=== PATIENT | female | born 1960 | race Caucasian/White ===

== ENCOUNTER 2019-03-16 15:31 | Outpatient (REF) | payer MEDICAID, SELFPAY | END 2019-03-16 15:51 | LOC: LBN 15:31 | PROVIDERS: PCP Family Medicine; Visit Provider Family Medicine | DX: R30.0 Dysuria (principal) | CPT/HCPCS: 87077; 87086; 87186 ==

== ENCOUNTER 2020-05-05 02:10 | Outpatient (CLI) | payer MEDICAID, SELFPAY ==
[2020-05-06 15:33] LABS: COVID-19 RT-PCR UVMMC Result Negative (Negative)
== END 2020-05-05 02:30 ==
PROVIDERS: PCP Family Medicine; Visit Provider Surgery
DX: Z11.52 Encounter for screening for COVID-19 (principal); Z01.818 Encounter for other preprocedural examination
CPT/HCPCS: U0003

== ENCOUNTER 2020-05-10 07:19 | Day surgery (SDC) | payer MEDICAID, SELFPAY ==
--- NOTE | 2020-05-10 07:00 | COLE_ITS ---
Date of service: 05/10/20 Time of Service: 08:19 Colonoscopy Report Date of procedure: 05/10/20 Pre-op diagnosis general: Colon Cancer Screening Post-op diagnosis procedure note: other (sigmoid polyp) Procedure: Colonoscopy with polypectomy Surgeon: Kathrin Moore Anesthesia proc note operative: other (General/ASA 2/Jacky Mcfadden CRNA) Estimated blood loss (mL): 3 Pathology: other (Sigmoid polyp) Complications: None Disposition: same day Indications: Mrs. Baez is a pleasant 59-year-old female who is here in the office today to discuss another colonoscopy. Her last colonoscopy was in 2009 and was normal. She has no family history of colon cancer. She denies any GI symptoms. Colonoscopy procedure was discussed in detail as well as its complications. We reviewed the prep instructions. We also discussed Covid testing and quarantine requirements per state guidelines. Risks, benefits and complications have been reviewed. Complications include but are not limited to bleeding, pain, perforation, missed small lesion/polyp, sore throat, aspiration and adverse reaction to the medications. Questions were entertained and answered to their satisfaction and they wished to proceed. No guarantees were given or implied. COVID-19 testing explained to the patient. Reason for test reviewed. Quarantine per state requirements reviewed with patient. Patient understands and agrees to testing. Prep: Miralax/Dulcolax Procedure Start Time: :19 Procedure End Time: 08:50 Retraction Time: 20 minutes Findings: One small sigmoid polyp (<10 mm) Procedure Description: After informed consent was obtained the patient was taken to the procedure room and placed in a left decubitous position. Monitors were applied and a time out was done. The patients name, date of , procedure, allergies to medications and metal in their body was reviewed. The patient was then sedated. Once sedated and comfortable a rectal exam was done. External exam was normal. Internal exam revealed a normal sphincter tone and no palpable masses. The scope was then introduced and retro-flexed. No internal hemorrhoids, polyps or masses were identified on retro-flexion. The scope was then advanced to the cecum without difficulty. The ileocecal valve and appendiceal orifice were identified. The prep was adequate. The scope was then slowly retracted over 20 minutes back into the rectum. Polyps were removed with cold forceps in the sig moid colon. There was no diverticulosis noted. The scope was removed and the patient was woken up and taken back to Same day surgery in stable condition. The patient tolerated the procedure well and there were no immediate complications. Follow up: The patient should follow up in 5 years unless they develop changes in bowel habits or other new gastrointestinal complaints.
--- NOTE | 2020-05-10 07:02 | W.PM.DSUDISC ---
Discharge Plan Disposition Patient Disposition: HOME Condition: Good Discharge Details Reason For Visit: colonoscopy Attending Provider: Kathrin Moore Primary Care Provider: Duncan Gottlieb Home Meds and New Rx's Prescriptions: Continued triamcinolone acetonide 0.1 % cream 1 applic Topical BID PRN (Reason: ear rash) Qty: 30 RF: 1 mupirocin 2 % ointment 1 applic TP BID PRN (Reason: follicular rash) Qty: 30 RF: 1 albuterol sulfate 90 mcg/actuation HFA aerosol inhaler 1 puff IH Q6H PRN (Reason: shortness of breath or wheezing) Qty: 8 RF: 1 loratadine 10 mg tablet 10 mg PO DAILY PRN (Reason: allergy symptoms) Qty: 90 RF: 3 amlodipine 5 mg tablet 5 mg PO DAILY Qty: 90 RF: 4 bupropion HCl [Wellbutrin SR] 150 mg tablet sustained-release 12 hr 150 mg PO DAILY RF: 0 omeprazole magnesium [Prilosec OTC] 20 mg tablet,delayed release (DR/EC) 20 mg PO DAILY PRN (Reason: dyspepsia) Qty: 30 RF: 5 atenolol 50 mg tablet 50 mg PO DAILY Qty: 90 RF: 4 ibuprofen 800 mg tablet 800 mg PO TID PRN (Reason: fever or pain) Qty: 90 RF: 1 fluticasone propionate [Flonase Allergy Relief] 50 mcg/actuation spray,suspension 2 spray NS DAILY PRN (Reason: allergy symptoms) Qty: 360 RF: 3 Discontinued bisacodyl [Dulcolax (bisacodyl)] 5 mg tablet,delayed release (DR/EC) 5 mg PO ONCE Qty: 4 RF: 0 polyethylene glycol 3350 17 gram powder in packet 255 g PO DAILY Qty: 15 RF: 0 Discharge Instructions Instructions: Colorectal Polyps (DC) Additional Instructions: Findings: 1 small polyp Follow up: 5 years Please call if you develop: fevers >101.5 Nausea or Vomiting Abdominal pain that is not transient DAY SURGERY UNIT POST ENDOSCOPY INSTRUCTIONS 1. Because there will be medication in your system for the next 24 hours, you may feel a little sleepy. Your coordination will be affected. Therefore: a. Do not drive or operate dangerous equipment for 24 hours. b. Do not drink alcohol beverages for 24 hours (not even beer). c. Plan to go home and rest for the day. 2. Generally there are no restrictions on your activity after a day or so has gone by, but you may feel a bit fatigued for a few days. 3 After you arrive home you may have a light meal and return to a normal diet as you can tolerate it without feeling sick to your stomach. 4. After surgery, you may feel pain or discomfort. This should be only transient, but if it persists please contact your doctor. 5. If there are any questions regarding the findings of your procedure, please feel free to contact your doctor. 6. If you are unable to contact your doctor with a problem, contact the hospital at [phone]. 7. Continue all your regular medications unless directed otherwise. I understand the above instructions and have no questions. Signature of Patient or Responsible Adult Escort Date/Time Name of Responsible Adult Escort Signature of Nurse Date/Time Activity:: Activity as Tolerated Diet:: As Tolerated Discharge Orders Discharge Orders: Discharge Order (Routine); Ordered 05/10/20 Ordered By: Kathrin Moore
[2020-05-10 07:30] VITALS: BP 116/72; PULSE 63; RESP 16; TEMP 36.4; O2SAT 94
[2020-05-10] MEDS: Lactated Ringers 1,000 ML 80 ML IV (07:47)
--- NOTE | 2020-05-10 08:21 | BOWEL_PTH ---
PATIENT: Tali Baez LOC: [facility] U#:[id number] AGE/SX: 59/F ROOM: RE05/10/[address]: Kathrin Moore MD : 1960 BED: DIS: 05/10/2020 SPEC #: [id number] RECD: 05/10/20 12:24 STATUS: ISAIAS REQ #: [id number] ELISA: 05/10/20 08:[address]: Kathrin Moore DEPT: Surgical Specimen RECD BY: Jeniffer Ascencio ENTERED: 05/10/20 12:24 SP TYPE: Bowel OTHR DR: Duncan Gottlieb MD Tissues: 1 - BIOPSY BOWEL Procedures: GROSS AND MICRO LEVEL 4 Comments: [id number]
[2020-05-10 09:20] VITALS: BP 125/78; PULSE 63; RESP 18; TEMP 36.4; O2SAT 96
== END 2020-05-10 09:55 | disposition home or self-care (01) ==
LOC: SUR 07:20
PROVIDERS: PCP Family Medicine; Visit Provider Surgery
PROC: 0DJD8ZZ Inspection of Lower Intestinal Tract, Via Natural or Artificial Opening Endoscopic (ICD-10-PCS; CPT 45378; principal; 2020-05-10 08:15)
DX: Z12.11 Encounter for screening for malignant neoplasm of colon (principal); D12.4 Benign neoplasm of descending colon
CPT/HCPCS: 45380; 88305

== ENCOUNTER 2020-12-10 17:04 | Emergency (ER) | payer MEDICAID, SELFPAY ==
[2020-12-10 17:15] VITALS: BP 143/80; PULSE 63; RESP 18; TEMP 36.9; O2SAT 94
[2020-12-10 18:25] VITALS: BP 133/76; PULSE 65; RESP 18; TEMP 36.1; O2SAT 98
--- NOTE | 2020-12-10 18:32 | ED.GENADUL_ITS ---
Discharge Plan Disposition Patient Disposition: HOME Condition: Good Discharge Details Clinical Impression: History of shingles Primary Care Provider: Duncan Gottlieb ED Provider: Jeniffer Bruno Home Meds and New Rx's Prescriptions: New valacyclovir [Valtrex] 1 gram tablet 1,000 mg PO Q8H Qty: 21 RF: 0 No Action loratadine 10 mg tablet 10 mg PO DAILY PRN (Reason: allergy symptoms) Qty: 90 RF: 3 bupropion HCl [Wellbutrin SR] 150 mg tablet sustained-release 12 hr 150 mg PO DAILY RF: 0 albuterol sulfate 90 mcg/actuation HFA aerosol inhaler 1 puff IH Q6H PRN (Reason: shortness of breath or wheezing) Qty: 8 RF: 1 mupirocin 2 % ointment 1 applic TP BID PRN (Reason: follicular rash) Qty: 30 RF: 1 triamcinolone acetonide 0.1 % cream 1 applic Topical BID PRN (Reason: ear rash) Qty: 30 RF: 1 omeprazole magnesium [Prilosec OTC] 20 mg tablet,delayed release (DR/EC) 20 mg PO DAILY PRN (Reason: dyspepsia) Qty: 30 RF: 5 atenolol 50 mg tablet 50 mg PO DAILY Qty: 90 RF: 4 fluticasone propionate [Flonase Allergy Relief] 50 mcg/actuation spray,suspension 2 spray NS DAILY PRN (Reason: allergy symptoms) Qty: 360 RF: 3 ibuprofen 800 mg tablet 800 mg PO TID PRN (Reason: fever or pain) Qty: 90 RF: 1 amlodipine 5 mg tablet 5 mg PO DAILY Qty: 90 RF: 4 Discharge Instructions Additional Instructions: Take Valtrex as prescribed Please return with worsening pain, fever, chills, headache, or should you have new or worsening complaints Stay away from immunosuppressive people, people, elderly Discharge Data Discharge Date/Time-TO BE ENTERED AT DEPARTURE: 12/10/20 18:53 Medical Decision Making Is an interesting case and patient clinically has shingles, however it does cross the midline, I will treat her empirically with Valtrex, she was given the first dose in the emergency room She is not reportedly immunosuppressed It sounds like approximately 20% of shingles cases cross midline She given a threshold to return should she have new or worsening complaints and she discharged home in stable condition with stable vital HPI General Mode of arrival: ambulatory . Date/Time Provider Initiated Documentation: 12/10/20 18:32 . Limitations to Documentation: no limitations . Information obtained by: patient . HPI Narrative: This pleasant 60-year-old female presents with a rash that started on Friday. She states the rash is exquisitely tender, burning, itching. She denies any known injuries or insect bites. She states that she had a tingling sensation before the rash started. She states she feels like she have a virus, tired and she felt achy, this is generalized. She denies any chest pain or shortness of breath. She denies any history of delusions of the past. She did have chickenpox as a child. She denies any known sick contacts. Related Data Home Medications Medication Instructions Recorded Confirmed loratadine 10 mg tablet 10 mg PO DAILY PRN #90 tab-cap 11/09/18 12/10/20 omeprazole magnesium 20 mg 20 mg PO DAILY PRN #30 tab 03/16/19 12/10/20 tablet,delayed release atenolol 50 mg tablet 50 mg PO DAILY #90 tab-cap 02/10/20 12/10/20 bupropion HCl 150 mg tablet,12 hr 150 mg PO DAILY tab-cap 04/18/20 12/10/20 sustained-release fluticasone propionate 50 2 spray NS DAILY PRN #360 spry 05/05/20 12/10/20 mcg/actuation nasal spray,suspension ibuprofen 800 mg tablet 800 mg PO TID PRN #90 tab-cap 11/08/20 12/10/20 amlodipine 5 mg tablet 5 mg PO DAILY #90 tab-cap 11/09/20 12/10/20 albuterol sulfate 90 mcg/actuation 1 puff IH Q6H PRN #8 gm 11/22/20 12/10/20 aerosol inhaler mupirocin 2 % topical ointment 1 applic TP BID PRN #30 gm 11/22/20 12/10/20 triamcinolone acetonide 0.1 % 1 applic TOPICAL BID PRN #30 gm 11/22/20 12/10/20 topical cream valacyclovir [Valtrex] 1,000 mg PO Q8H #21 tab 12/10/20 Previous Rx's Medication Instructions Recorded loratadine 10 mg tablet 10 mg PO DAILY PRN #90 tab-cap 11/09/18 omeprazole magnesium 20 mg 20 mg PO DAILY PRN #30 tab 03/16/19 tablet,delayed release atenolol 50 mg tablet 50 mg PO DAILY #90 tab-cap 02/10/20 fluticasone propionate 50 2 spray NS DAILY PRN #360 spry 05/05/20 mcg/actuation nasal spray,suspension ibuprofen 800 mg tablet 800 mg PO TID PRN #90 tab-cap 11/08/20 amlodipine 5 mg tablet 5 mg PO DAILY #90 tab-cap 11/09/20 albuterol sulfate 90 mcg/actuation 1 puff IH Q6H PRN #8 gm 11/22/20 aerosol inhaler mupirocin 2 % topical ointment 1 applic TP BID PRN #30 gm 11/22/20 triamcinolone acetonide 0.1 % 1 applic TOPICAL BID PRN #30 gm 11/22/20 topical cream valacyclovir [Valtrex] 1,000 mg PO Q8H #21 tab 12/10/20 Allergies Allergy/AdvReac Type Severity Reaction Status Date / Time azithromycin AdvReac Intermediate Verified 12/10/20 17:20 codeine AdvReac Intermediate VOMITING Verified 12/10/20 17:20 erythromycin base AdvReac Unknown GI Verified 12/10/20 17:20 INTOLERANCE meperidine AdvReac VOMITING Verified 12/10/20 17:20 General Stated Complaint: RashLesion BRYSON: 3 Review of Systems All systems reviewed & are unremarkable except as noted in HPI and below PFSH Medical History Anogenital herpesviral infection Asthma Carpal tunnel syndrome Depression HYpertension Mastitis Seasonal allergies Toxic uninodular goiter Surgical History Biopsy of breast 06/2010 bilateral excisional breast biopsies fibroadenoma and papilloma History of lumpectomy of both breasts Rhinoplasty 1988 Family History Mother , AGE 61 No problems noted. Father , AGE 84 No problems noted. Sister , AGE 29 No problems noted. Sister No problems noted. Brother No problems noted. Son , AGE 22 No problems noted. Sister No problems noted. Social History (Updated 11/24/20 @ 08:29 by Karel Hardy) Smoking/Tobacco Use Status: Never Second Hand Exposure: No Smoking risk assessment performed?: Yes Alcohol Intake: current Alcohol Intake frequency: a few times a week Alcohol type: beer and wine Drug use: Never Substance use type: does not use Caregiver/Support person: No Household members: none Housing: house Communication Needs: None Do you need help understanding health information?: Never current occupation: DISPATCHER Pets and animals: Yes Pets and animals: cat(s) Sexually active: Yes Do you think of yourself as: straight/heterosexual Current gender identity: female What is your relationship status?: How often do you talk on the phone with friends or family?: three or more times per week How often do you get together with friends or relatives?: twice per week How often do you attend gnosticist or methodist services?: decline to answer Do you belong to any clubs or organized social groups?: no Panel score (0-1 are the most socially isolated patients): 1 What type of physical activity do you participate in: walking Duration: 15-30 minutes/day Frequency: 3-4 times per week Stephani/Scientology: No preference Special stephani needs: No Seatbelt use: always Helmet use: Yes Helmet use: always Drive intox or ride w/intox motorcycle delivery driver: No Do you feel safe at home: Yes Do you feel safe in your relationship?: Yes Exam Const General: cooperative and healthy appearing HENCT Head: normal to inspection Eyes Sclera: sclerae normal Resp Effort & Inspection: normal respiratory effort Cardio Rate: regular rate Skin Other: Vesicular rash across scapular region, along bra line, exquisitely tender to light palpation, no erythema or abscess formation, of note it does cross midline, no crepitus Neuro General: patient alert and patient oriented x3 Course Vital Signs Vital signs: Vital Signs Temperature 36.9 C 12/10/20 17:15 Pulse 63 12/10/20 17:15 Respiratory Rate 18 12/10/20 17:15 Blood Pressure 143/80 H 12/10/20 17:15 Pulse Oximetry 94 12/10/20 17:15 Temperature 36.9 C 12/10/20 17:15 Temperature Source Temporal Artery Scan 12/10/20 17:15 Pulse 63 12/10/20 17:15 Respiratory Rate 18 12/10/20 17:15 Respiratory Effort Non-Labored 12/10/20 17:23 Blood Pressure 143/80 H 12/10/20 17:15 Blood Pressure Position Sitting 12/10/20 17:15 Pulse Oximetry 94 12/10/20 17:15 Oxygen Delivery Method Room Air 12/10/20 17:15 Oxygen Flow Rate 0 12/10/20 17:15 Pain Level 7 12/10/20 17:15
[2020-12-10] MEDS: valACYclovir 1,000 MG TAB 1000 MG PO (18:50)
== END 2020-12-10 18:53 | disposition home or self-care (01) ==
PROVIDERS: Emergency Provider Physician Assistant; PCP Family Medicine
DX: B02.9 Zoster without complications (principal)
CPT/HCPCS: 99283

== ENCOUNTER 2021-11-29 12:23 | Outpatient (REF) | payer MEDICAID, SELFPAY ==
--- NOTE | 2021-11-29 11:50 | PAPFT_PTH ---
PATIENT: Tali Baez LOC: [facility]#:[id number] AGE/SX: 61/F ROOM: RE11/29/[address]: Duncan Gottlieb MD : 1960 BED: DIS: 11/29/2021 SPEC #: [id number] RECD: 11/30/21 10:17 STATUS: ISAIAS REQ #: [id number] ELISA: 11/29/21 11:[address]: Duncan Gottlieb DEPT: [facility] Cytology RECD BY: hRiannon Angel Tissues: 1 - CX/ENDOCX FOR PAP SMEARS Procedures: PAP THIN PREP/UVM Screening HPV DNA PROBE Comments: [id number]
== END 2021-11-29 12:24 | disposition home or self-care (01) ==
LOC: LBN 12:23
PROVIDERS: PCP Family Medicine; Visit Provider Family Medicine
DX: Z12.4 Encounter for screening for malignant neoplasm of cervix (principal); Z11.51 Encounter for screening for human papillomavirus (HPV)
CPT/HCPCS: 88142; 87624

== ENCOUNTER → 2021-12-17 03:05 | Outpatient (CLI) | payer MEDICAID, SELFPAY ==
--- NOTE | 2021-12-17 08:00 | DI.MAMMO_ITS ---
Exam(s) MAMMO SCREENING EXAM: MAMMO SCREENING CLINICAL HISTORY: screening,z12.39 TECHNIQUE: Mammograms were interpreted according to the usual protocol including computer analysis w [employer] CAD system, tomosynthesis and C-view imaging. COMPARISON: FINDINGS: The breasts are heterogeneously dense. No dominant mass or suspicious clumped microcalcification is identified in either breast. There is a group of 4 benign-appearing microcalcifications projected in the central medial portion of the left breast. No prior films available for comparison. IMPRESSION: No specific evidence of malignancy at this time. Follow-up mammogram requested in 12 months to evalu ate probably benign group of microcalcifications of the left breast, considering the family history o f breast carcinoma. BI-RADS Category 2 - Benign Findings Breast Density - Category C - Heterogeneously dense
== END ==
PROVIDERS: PCP Family Medicine; Visit Provider Family Medicine
DX: Z12.31 Encounter for screening mammogram for malignant neoplasm of breast (principal); R92.8 Other abnormal and inconclusive findings on diagnostic imaging of breast
CPT/HCPCS: 77063; 77067

== ENCOUNTER 2022-12-12 08:29 | Outpatient (CLI) | payer MEDICAID, SELFPAY ==
[2022-12-12 12:43] LABS: Calculated LDL 160 mg/dL (<100); Cholesterol 231 mg/dL (<200); Glucose 112 mg/dL (74-106); HDL Cholesterol 46 mg/dL (40-60); TSH (W/Ref FT4) 3.45 uIU/mL (0.36-3.74); Triglyceride 128 mg/dL (<150)
== END 2022-12-12 08:30 | disposition home or self-care (01) ==
LOC: LOS 08:29
PROVIDERS: PCP Family Medicine; Referring Provider Family Medicine; Visit Provider Family Medicine
DX: E03.9 Hypothyroidism, unspecified (principal); E78.5 Hyperlipidemia, unspecified; R73.09 Other abnormal glucose
CPT/HCPCS: 36415; 80061; 82947; 84443

== ENCOUNTER 2023-12-16 09:07 | Outpatient (CLI) | payer MEDICARE, SELFPAY ==
[2023-12-16 12:38] LABS: Calculated LDL 178 mg/dL (<100); Cholesterol 257 mg/dL (<200); HDL Cholesterol 53 mg/dL (40-60); Triglyceride 133 mg/dL (<150)
[2023-12-16 13:17] LABS: Hemoglobin A1C 5.9 % (<5.7)
[2023-12-16 19:51] LABS: Hepatitis C Ab w Rflx HCV PCR Negative (Negative)
== END 2023-12-16 09:08 | disposition home or self-care (01) ==
LOC: LOS 09:07
PROVIDERS: PCP Family Medicine; Referring Provider Family Medicine; Visit Provider Family Medicine
DX: E11.51 Type 2 diabetes mellitus with diabetic peripheral angiopathy without gangrene (principal); I70.209 Unspecified atherosclerosis of native arteries of extremities, unspecified extremity; E78.5 Hyperlipidemia, unspecified; Z11.59 Encounter for screening for other viral diseases; Z12.39 Encounter for other screening for malignant neoplasm of breast; M54.16 Radiculopathy, lumbar region
CPT/HCPCS: 36415; 80061; 86803; 83036

== ENCOUNTER 2023-12-23 02:25 | Outpatient (CLI) | payer MEDICARE, SELFPAY ==
--- NOTE | 2023-12-23 07:30 | DI.MAMMO_ITS ---
Exam(s) MAMMO SCREENING EXAM: MAMMO SCREENING CLINICAL HISTORY: screening,z12.39. TECHNIQUE: Bilateral full field digital CC and MLO mammographic images were obtained with 3D tomosyn thesis and utilizing computer aided detection (CAD). COMPARISON: Prior mammograms were reviewed. FINDINGS: There has been no significant change in the appearance and distribution of the fibroglandular tissue. No new right breast findings. A benign-appearing small nodule laterally in the left breast is unchanged from 2021 and has appearanc e of benign intramammary lymph node. A small microcalcification group located centrally in the left breast remains benign appearance. The re are no new malignant-appearing microcalcification groups in either breast. There is no significant architectural distortion nor skin thickening-retraction. IMPRESSION: Stable benign-appearing findings. No radiographic evidence of malignancy. BI-RADS Category 2 - Benign Findings Breast Density - Category B - Scattered areas of fibroglandular density Breast density Category C or D implies that the patient has dense breast tissue. Dense breast tissue can make it harder to find cancer on a mammogram. Dense breast tissue is also associated with an incr eased risk of breast cancer. This information about the result of the mammogram report was provided to the patient to raise their awareness. Use this report when you speak with the patient about their risks for breast cancer, which includes their family history. At that time, you may recommend additional screening tests (Ultrasoun d or MRI) as these tests may add significant information. A negative radiographic report should not delay biopsy if a dominant or clinically suspicious mass is present. Up to ten percent of cancers are not identified on mammography. A negative report may reinforce clinical impression. Adenosis and dense breasts may obscure an underlying neoplasm. False positive reports average 6 to 10%. Patient will receive a letter notifying them of these results.
== END 2023-12-23 02:45 ==
LOC: DI 02:25
PROVIDERS: PCP Family Medicine; Visit Provider Family Medicine
DX: Z12.31 Encounter for screening mammogram for malignant neoplasm of breast (principal)
CPT/HCPCS: 77063; 77067

== ENCOUNTER 2024-12-17 10:32 | Outpatient (CLI) | payer MEDICARE, SELFPAY ==
[2024-12-17 12:58] LABS: Anion Gap 8.7 mmol/L (3-11); BUN 11 mg/dL (7-18); CO2 29.3 mmol/L (21.0-32.0); Calcium 9.3 mg/dL (8.5-10.1); Chloride 104 mmol/L (98-107); Estimated GFR 95.32 (mL/min/1.73m2); Glucose 94 mg/dL (74-106); Potassium 4.2 mmol/L (3.5-5.1); Sodium 142 mmol/L (136-145)
[2024-12-21 10:46] LABS: Lab Add On Test DONE
[2024-12-21 11:00] LABS: Calculated LDL 164 mg/dL (<100); Cholesterol 237 mg/dL (<200); HDL Cholesterol 44 mg/dL (>or=50); Triglyceride 149 mg/dL (<150)
== END 2024-12-17 10:33 | disposition home or self-care (01) ==
LOC: LOS 10:33
PROVIDERS: PCP Family Medicine; Visit Provider Nurse Practitioner Family
DX: N39.0 Urinary tract infection, site not specified (principal); E78.5 Hyperlipidemia, unspecified
CPT/HCPCS: 36415; 80048; 80061

== ENCOUNTER 2024-12-17 18:43 | Outpatient (REF) | payer MEDICARE, SELFPAY ==
[2024-12-17 16:23] LABS: Glucose Negative (Negative)
[2024-12-17 16:37] LABS: C & S Indicated? Yes; RBC 0-2 HPF (0-2)
== END 2024-12-17 18:44 | disposition home or self-care (01) ==
LOC: LBN 18:43
PROVIDERS: PCP Family Medicine; Visit Provider Nurse Practitioner Family
DX: R30.0 Dysuria (principal); B96.29 Other Escherichia coli [E. coli] as the cause of diseases classified elsewhere
CPT/HCPCS: 87077; 81003; 81015; 87086; 87186

== ENCOUNTER 2025-02-05 14:12 | Outpatient (REF) | payer MEDICARE, SELFPAY ==
[2025-02-05 16:30] LABS: Glucose Negative (Negative)
[2025-02-05 16:42] LABS: C & S Indicated? Yes; WBC >50 HPF (0-5)
== END 2025-02-05 14:13 | disposition home or self-care (01) ==
LOC: LBN 14:12
PROVIDERS: PCP Family Medicine; Visit Provider Physician Assistant
DX: R30.0 Dysuria (principal)
CPT/HCPCS: 87077; 81003; 81015; 87086; 87186